=== PATIENT | male | born 1970 | race Caucasian/White ===

== ENCOUNTER → 2017-08-08 06:07 | Outpatient (CLI) | payer MEDICAID, SELFPAY ==
--- NOTE | 2017-08-08 12:37 | STRESSREP ---
Stress Test Report Exercise/pharmacologic myocardial perfusion stress test. 47-year-old man with a history of atherosclerotic cardiovascular disease. Stress protocol: Resting EKG demonstrates sinus bradycardia with a rate of 60 bpm occasional premature ventricular complex noted. The patient exercised according to the regular Piero protocol for total duration of 3 minutes the maximum heart rate attained was 108 bpm which was 63% of maximum predicted heart rate the maximum workload attained was 4.6 metabolic equivalents. Due to and attainment of target heart rate the patient was changed to a pharmacologic stress test. 0.4 mg of regadenoson was infused per usual protocol. During infusion the patient developed a long pause of approximately 4.1 seconds. The patient subsequently recovered back to sinus rhythm. Post infusion no significant abnormal 80s were noted the maximum heart rate was 80 bpm. The resting blood pressure was 100/78 with a final blood pressure 118/80 mmHg. Myocardial perfusion protocol. 14.4 mCi of technetium 99m sestamibi was injected at rest. 0.4 mg regadenoson was infused per usual protocol. At peak infusion 44.7 mCi of technetium 99m sestamibi was injected. Stress images were obtained. Stress and rest images were reconstructed and compared in the short axis vertical long and horizontal long axis. Gated images were also obtained. Perfusion SPECT analysis. Review of the stress images demonstrate normal uptake of tracer noted in the anterior septum the anterior wall and the anterior lateral wall. The entire inferior wall has moderately reduced perfusion on the stress images with near normalization with the resting images. The above is suggestive of a previously infarcted inferior wall with moderate amount of inferior and inferior septal ischemia present. Gated SPECT analysis. The gated ejection fraction is 65%. Conclusion: Abnormal pharmacologic myocardial perfusion stress test with evidence of inferior and inferior septal ischemia of a moderate degree in a medium to large size zone. Preserved ejection fraction.
== END ==
PROVIDERS: Visit Provider Internal Medicine Cardiovascular Disease
DX: I25.118 Atherosclerotic heart disease of native coronary artery with other forms of angina pectoris (principal)
CPT/HCPCS: 78452; 93017; A9500; A4216; J2785